=== PATIENT | female | born 1960 | race Asian ===

== ENCOUNTER 2025-05-11 08:03 | Emergency (ER) | payer MEDICAID, OTHER ==
[~2025-05-11] VITALS: Ht 162.6 cm; Wt 54.2 kg
[~2025-05-11 08:03] MED LIST: ATENOLOL PO; MULT1CAP32 PO; TAMOXIFEN PO
[2025-05-11 08:17] VITALS: TEMP 98.1
[2025-05-11 08:39] LABS: PLATELET COUNT (AUTO) 289 K/uL (150-450); RED BLOOD CELL COUNT(AUTO) 4.40 MIL/uL (4.00-5.20); RED CELL DISTRIBUTION WIDTH 13.0 % (11.5-14.5); WHITE BLOOD COUNT (AUTO) 3.5 K/uL (4.5-11.0)
[2025-05-11 08:45] LABS: CALCIUM, TOTAL 9.1 mg/dL (8.8-10.5); CREATININE 0.89 mg/dL (0.60-1.30); GLOMERULAR FILTR. RATE CALC > 60 mL/min (>60); GLUCOSE,RANDOM 106 mg/dL (70-110); SODIUM SERUM 136 mmol/L (136-145); UREA NITROGEN, BLOOD 10 mg/dL (7-18)
[2025-05-11 08:55] LABS: TROPONIN I-HIGH SENSITIVITY 8 ng/L (<51)
[2025-05-11 10:03] LABS: APPEARANCE,URINE CLEAR (CLEAR); GLUCOSE, URINE (UA) NEGATIVE (NEGATIVE); LEUKOCYTE ESTERASE ,URINE SMALL (NEGATIVE); NITRATE,URINE NEGATIVE (NEGATIVE); OCCULT BLOOD,URINE NEGATIVE (NEGATIVE); SPECIFIC GRAVITIY, URINE 1.004 (1.003-1.030)
[2025-05-11 13:21] VITALS: BP 115/65; PULSE 89; RESP 16; O2SAT 100
== END 2025-05-11 13:26 | disposition home or self-care (01) ==
LOC: EMS 08:03
DX: F41.9 Anxiety disorder, unspecified (principal); R00.2 Palpitations; R20.0 Anesthesia of skin; I10 Essential (primary) hypertension; Z86.000 Personal history of in-situ neoplasm of breast; Z88.0 Allergy status to penicillin; Z79.899 Other long term (current) drug therapy
CPT/HCPCS: 71045; 80048; 81001; 83880; 84484; 85025; 85610; 85730; 93005; 99285; 36415-L1; 36415-TC